=== PATIENT | male | born 1970 | race Caucasian/White ===

== ENCOUNTER 2018-02-06 17:28 | Inpatient (IN) | payer MEDICARE, OTHER ==
[2018-02-06] MEDS: SODIUM CHLORIDE 0.9% 1L BAG IV* (19:54)
[2018-02-06 19:55] LABS: ADD MAN DIFF? NO
[2018-02-06 19:56] LABS: WHITE BLOOD COUNT 12.7 10^3/ul (4.8-10.8)
[2018-02-06 19:56] LABS: ABNORMAL IP MESSAGE 1; BASOPHILS % 0.3 % (0.0-2.0); EOSINOPHILS # 0.8 10^3/ul (0.0-0.5); EOSINOPHILS % 6.2 % (0.0-7.0); HEMATOCRIT 34.1 % (42.0-52.0); HEMOGLOBIN 10.9 g/dl (14.0-18.0); LYMPHOCYTES # 0.5 10^3/ul (0.8-2.9); LYMPHOCYTES % 4.1 % (15.0-51.0); MEAN CORPUSCULAR HEMOGLOBIN 27.6 pg (29.0-33.0); MEAN CORPUSCULAR VOLUME 86.3 fl (82.0-101.0); MEAN PLATELET VOLUME 9.4 fl (7.4-10.4); MONOCYTES % 8.2 % (0.0-11.0); NEUTROPHIL # 10.3 10^3/ul (1.6-7.5); NEUTROPHILS % 80.7 % (39.0-77.0); PLATELET COUNT 211 10^3/UL (140-415); POSITIVE DIFF @See below; RED BLOOD COUNT 3.95 10^6/ul (4.70-6.10); RED CELL DISTRIBUTION WIDTH 14.6 % (11.5-14.5)
[2018-02-06 20:13] LABS: LACTIC ACID 1.6 mmol/L (0.5-2.0)
[2018-02-06 20:13] LABS: INR 0.97; PARTIAL THROMBOPLASTIN TIME 28.4 Sec (25.0-35.0)
[2018-02-06 20:17] LABS: ALANINE AMINOTRANSFERASE 26 IU/L (13-69); ALBUMIN 4.1 g/dl (3.3-4.9); ALBUMIN/GLOBULIN RATIO 1.24; ALKALINE PHOSPHATASE 111 IU/L (42-121); ANION GAP 10 (8-16); ASPARTATE AMINO TRANSFERASE 26 IU/L (15-46); BILIRUBIN,INDIRECT 0.5 mg/dl (0-1.1); BILIRUBIN,TOTAL 0.5 mg/dl (0.2-1.3); BLOOD UREA NITROGEN 17 mg/dl (7-20); CALCIUM 9.1 mg/dl (8.4-10.2); CARBON DIOXIDE 33 mmol/L (21-31); CHLORIDE 101 mmol/L (97-110); CREATININE 1.06 mg/dl (0.61-1.24); GLUCOSE 114 mg/dl (70-220); POTASSIUM 3.5 mmol/L (3.5-5.1); SODIUM 140 mmol/L (135-144); TOTAL PROTEIN 7.4 g/dl (6.1-8.1)
[2018-02-06 20:29] LABS: C-REACTIVE PROTEIN 14.6 mg/dl (0.0-0.9)
[2018-02-06 21:18] LABS: ERYTHROCYTE SEDIMENTATION RATE 60 mm/Hr (0-15)
[2018-02-06 22:06] LABS: LACTIC ACID 1.3 mmol/L (0.5-2.0)
[2018-02-06] MEDS: VANCOMYCIN 1.5 GM in SOD CHLORIDE 0.9% 250 ML IVPB (22:24)
[2018-02-06] MEDS: KETOROLAC 15 MG INJ IV (23:17)
[2018-02-07] MEDS ORDERED: NACL 0.9% 3 ML SYG IV
[2018-02-07] MEDS ORDERED: VANCOMYCIN IV PER PHARMACY XX
[2018-02-07] MEDS ORDERED: DOCUSATE SODIUM 100 MG CAP PO
[2018-02-07] MEDS ORDERED: ONDANSETRON 4 MG INJ IV
[2018-02-07] MEDS: HYDROCODONE/APAP (5/325) TAB PO (02:59)
[2018-02-07] MEDS: ACETAMINOPHEN 325 MG TAB PO (03:16)
[2018-02-07] MEDS: ONDANSETRON 4 MG INJ IV (03:16)
[2018-02-07] MEDS: morphine 2 MG INJ IV ×2 (03:16→09:53)
[2018-02-07] MEDS ORDERED: ACETAMINOPHEN 325 MG TAB PO ×2 (03:30)
[2018-02-07] MEDS ORDERED: DIPHENHYDRAMINE 50 MG CAP PO (06:30)
[2018-02-07] MEDS: IVERMECTIN 3 MG TAB PO (06:59)
[2018-02-07 07:33] LABS: ADD MAN DIFF? NO
[2018-02-07 07:39] LABS: WHITE BLOOD COUNT 12.1 10^3/ul (4.8-10.8)
[2018-02-07 07:39] LABS: ABNORMAL IP MESSAGE 1; BASOPHILS % 0.2 % (0.0-2.0); EOSINOPHILS # 0.4 10^3/ul (0.0-0.5); EOSINOPHILS % 3.3 % (0.0-7.0); HEMATOCRIT 29.9 % (42.0-52.0); HEMOGLOBIN 9.4 g/dl (14.0-18.0); LYMPHOCYTES # 0.5 10^3/ul (0.8-2.9); LYMPHOCYTES % 4.2 % (15.0-51.0); MEAN CORPUSCULAR HEMOGLOBIN 27.2 pg (29.0-33.0); MEAN CORPUSCULAR HGB CONC 31.4 g/dl (32.0-37.0); MEAN CORPUSCULAR VOLUME 86.7 fl (82.0-101.0); MONOCYTE # 1.1 10^3/ul (0.3-0.9); MONOCYTES % 9.2 % (0.0-11.0); NEUTROPHILS % 82.6 % (39.0-77.0); PLATELET COUNT 193 10^3/UL (140-415); POSITIVE DIFF @See below; RED BLOOD COUNT 3.45 10^6/ul (4.70-6.10); RED CELL DISTRIBUTION WIDTH 14.9 % (11.5-14.5)
[2018-02-07 07:55] LABS: HEMOGLOBIN A1C 5.5 % (0-5.9)
[2018-02-07 07:55] LABS: ALANINE AMINOTRANSFERASE 20 IU/L (13-69); ALBUMIN 3.1 g/dl (3.3-4.9); ALBUMIN/GLOBULIN RATIO 1.14; ALKALINE PHOSPHATASE 80 IU/L (42-121); ANION GAP 6 (8-16); ASPARTATE AMINO TRANSFERASE 20 IU/L (15-46); BILIRUBIN,INDIRECT 0.5 mg/dl (0-1.1); BILIRUBIN,TOTAL 0.5 mg/dl (0.2-1.3); BLOOD UREA NITROGEN 10 mg/dl (7-20); CALCIUM 8.5 mg/dl (8.4-10.2); CARBON DIOXIDE 31 mmol/L (21-31); CHLORIDE 107 mmol/L (97-110); CHOL/HDL RATIO 7.5 RATIO; CHOLESTEROL 166 mg/dl (100-200); CREATININE 0.83 mg/dl (0.61-1.24); GLUCOSE 132 mg/dl (70-220); HDL CHOLESTEROL 22 mg/dl (27-67); LDL CHOLESTEROL,CALCULATED 113 mg/dl; POTASSIUM 3.7 mmol/L (3.5-5.1); SODIUM 140 mmol/L (135-144); TOTAL PROTEIN 5.8 g/dl (6.1-8.1); TRIGLYCERIDES 153 mg/dl (0-149)
[2018-02-07 08:23] LABS: THYROID STIMULATING HORMONE 0.533 MIU/L (0.465-4.680)
[2018-02-07] MEDS ORDERED: VANCOMYCIN 1 GM 250 ML IVPB (10:00)
[2018-02-07] MEDS: PIPER-TAZO 3.375 GM IV (PMX) 100 ML IVPB ×2 (11:40→21:40)
[2018-02-07] MEDS: KETOROLAC 15 MG INJ IV ×2 (12:38→19:59)
[2018-02-07] MEDS: VANCOMYCIN 1.25 GM in SOD CHLORIDE 0.9% 250 ML IVPB ×2 (12:39→22:22)
[2018-02-07] MEDS: NEOMYC/POLYMYX/BACIT 30 GM OINT TOP (18:34)
[2018-02-07] MEDS: BISACODYL (EC) 5 MG TAB PO (20:41)
[2018-02-08] MEDS: morphine 2 MG INJ IV (00:58)
[2018-02-08] MEDS: KETOROLAC 15 MG INJ IV ×3 (04:39→16:12)
[2018-02-08] MEDS: PIPER-TAZO 3.375 GM IV (PMX) 100 ML IVPB ×2 (05:05→15:12)
[2018-02-08 06:45] LABS: ADD MAN DIFF? NO
[2018-02-08 06:50] LABS: WHITE BLOOD COUNT 9.4 10^3/ul (4.8-10.8)
[2018-02-08 06:50] LABS: ABNORMAL IP MESSAGE 1; BASOPHILS % 0.3 % (0.0-2.0); EOSINOPHILS # 0.6 10^3/ul (0.0-0.5); EOSINOPHILS % 6.1 % (0.0-7.0); HEMATOCRIT 28.6 % (42.0-52.0); LYMPHOCYTES # 0.5 10^3/ul (0.8-2.9); LYMPHOCYTES % 5.2 % (15.0-51.0); MEAN CORPUSCULAR HGB CONC 31.5 g/dl (32.0-37.0); MEAN CORPUSCULAR VOLUME 85.9 fl (82.0-101.0); MEAN PLATELET VOLUME 9.9 fl (7.4-10.4); MONOCYTE # 0.9 10^3/ul (0.3-0.9); MONOCYTES % 9.7 % (0.0-11.0); NEUTROPHIL # 7.3 10^3/ul (1.6-7.5); NEUTROPHILS % 78.2 % (39.0-77.0); PLATELET COUNT 184 10^3/UL (140-415); POSITIVE DIFF @See below; RED BLOOD COUNT 3.33 10^6/ul (4.70-6.10); RED CELL DISTRIBUTION WIDTH 14.7 % (11.5-14.5)
[2018-02-08 07:16] LABS: ALANINE AMINOTRANSFERASE 17 IU/L (13-69); ALBUMIN 3.1 g/dl (3.3-4.9); ALBUMIN/GLOBULIN RATIO 1.06; ALKALINE PHOSPHATASE 83 IU/L (42-121); ANION GAP 6 (8-16); ASPARTATE AMINO TRANSFERASE 20 IU/L (15-46); BILIRUBIN,INDIRECT 0.4 mg/dl (0-1.1); BILIRUBIN,TOTAL 0.4 mg/dl (0.2-1.3); BLOOD UREA NITROGEN 12 mg/dl (7-20); CALCIUM 8.5 mg/dl (8.4-10.2); CARBON DIOXIDE 32 mmol/L (21-31); CHLORIDE 105 mmol/L (97-110); CREATININE 0.99 mg/dl (0.61-1.24); GLUCOSE 111 mg/dl (70-220); POTASSIUM 3.3 mmol/L (3.5-5.1); SODIUM 140 mmol/L (135-144)
[2018-02-08 07:19] LABS: IRON 21 ug/dl (35-150)
[2018-02-08 07:28] LABS: % IRON SATURATION 7 % SAT (22-52); TOTAL IRON BINDING CAPACITY 289 ug/dl (241-421)
[2018-02-08 07:55] LABS: HIV 1&2 ANTIBODY NEGATIVE (NEGATIVE)
[2018-02-08 11:15] LABS: VANCOMYCIN,TROUGH 10.6 ug/ml (10.0-20.0)
[2018-02-08] MEDS: VANCOMYCIN 1.25 GM in SOD CHLORIDE 0.9% 250 ML IVPB (11:26)
[2018-02-08] MEDS: DIPHENHYDRAMINE 50 MG CAP PO (14:13)
[2018-02-08] MEDS ORDERED: morphine LIQ (10 MG/5 ML) CUP PO (17:00)
== END 2018-02-08 17:00 | disposition home or self-care (01) | DRG 603 ==
LOC: E/R 17:28 → MS4 23:55
PROVIDERS: Family Medicine
DX: L03.116 Cellulitis of left lower limb (principal); B86 Scabies; L29.9 Pruritus, unspecified; Z85.72 Personal history of non-Hodgkin lymphomas
CPT/HCPCS: 36415; 73620; 73718; 80053; 80061; 80202; 82728; 83036; 83540; 83605; 83735; 84443; 85025; 85610; 85651; 85730; 86140; 86703; 87040; 93005; 93971; 96374; 99291-25

== ENCOUNTER 2018-02-09 04:29 | Emergency (ER) | payer MEDICARE ==
[2018-02-09] MEDS: DIPHENHYDRAMINE 25 MG CAP PO (05:14)
[2018-02-09] MEDS: HYDROCODONE/APAP (10/325) TAB PO (05:14)
== END 2018-02-09 05:45 | disposition home or self-care (01) ==
LOC: FTE 04:29
DX: M79.672 Pain in left foot (principal)
CPT/HCPCS: 99284

== ENCOUNTER 2018-09-01 21:01 | Emergency (ER) | payer SELFPAY, MEDICARE | END 2018-09-01 23:49 | disposition left against medical advice (07) | LOC: E/R 21:01 | DX: Z53.21 Procedure and treatment not carried out due to patient leaving prior to being seen by health care provider (principal) ==